=== PATIENT | male | born 1975 | race Caucasian/White ===

== ENCOUNTER 2016-05-30 14:21 | Emergency (ER) | payer OTHER ==
--- NOTE | ~2016-05-30 | ER ---
PATIENT'S NAME: KELLEE STEWART [facility] AGE: 41 Y [address] ROOM: [place] [id number] LOCATION: [facility] ADMIT DATE: 05/30/2016 ER/Outpatient Report DISCHARGE DATE: 05/30/2016 FAMILY PHYSICIAN: PHYSICIAN, NO ATTENDING PHYSICIAN: Samantha Fernandez Time of Arrival: 1421 hours. Time of Evaluation: 1440 hours. CHIEF COMPLAINT: Scalp laceration. HISTORY OF PRESENT ILLNESS: This is a 41-year-old male, who presents to the ER with a scalp laceration that happened just prior to arrival. The patient states he was working on some farm equipment. He states he sat up and hit his head on a blade. He states he did not get knocked out. He denies any neck or back pain. He denies any nausea or vomiting. He states he is not for sure when his last tetanus shot was. He denies any other problems at this time. ALLERGIES: NO KNOWN ALLERGIES. MEDICATIONS: Please see medication list nurse's notes. PAST MEDICAL HISTORY: Negative. PAST SURGERIES: None. SOCIAL HISTORY: Denies smoking, drug, or alcohol use. REVIEW OF SYSTEMS: CONSTITUTIONAL: Denies any change in weight or fatigue. MUSCULOSKELETAL: No weakness or myalgias. SKIN: He has a posterior scalp laceration. PHYSICAL EXAMINATION: VITAL SIGNS: Height 6 feet stated, weight 92.7 kg taken, blood pressure is 147/87, pulse 83, respirations 18, temperature 98.1 degrees tympanically, and saturations 96% on room air. Eaton Coma Score is 15. GENERAL: Alert, calm, well-developed male, in no acute distress. PATIENT'S NAME: KELLEE STEWART [facility] AGE: 41 Y [address] ROOM: [place], [place] [address] LOCATION: [facility] ADMIT DATE: 05/30/2016 ER/Outpatient Report DISCHARGE DATE: 05/30/2016 FAMILY PHYSICIAN: PHYSICIAN, NO ATTENDING PHYSICIAN: Samantha Fernandez HEENT: Head: Normocephalic. Eyes: Pupils are equal and reactive to light. He does display moist mucous membranes. EXTREMITIES: No clubbing or cyanosis. He does have full range of motion of all limbs. SKIN: He has a 3 cm superficial laceration noted to the posterior scalp. It does not go all the way through to the skull. It is not actively bleeding at this time. LABORATORY DATA AND X-RAYS: None were done. IMPRESSION: A 3 cm posterior scalp laceration. ASSESSMENT AND PLAN: I did cleanse the site with normal saline and repaired the laceration using 4 leatha. The patient did tolerate this well. We did cleanse the area and we did also update him on his tetanus shot. We will dismiss the patient to home with a wound care handout. He may take Tylenol or ibuprofen as needed for pain control. He may ice the area and he needs to follow up with his primary care physician in 7 to 10 days for staple removal. The patient understands and agrees with care. DONNY CHARLES PA-C FOR MD STUART SHETH/minnie /[id number] d: t: 06/05/16 1234, OUTPATIENT REPORT
== END 2016-05-30 14:47 | disposition disaster alternative care site (69) ==
LOC: GACC 14:21
PROC: 0HQ0XZZ Repair Scalp Skin, External Approach (ICD-10-PCS; principal; 2016-05-30)
DX: S01.01XA Laceration without foreign body of scalp, initial encounter (principal); Z23 Encounter for immunization; W22.8XXA Striking against or struck by other objects, initial encounter